=== PATIENT | male | born 1965 | race Caucasian/White ===

== ENCOUNTER 2016-06-16 13:18 | Emergency (ER) | payer MEDICAID ==
[2016-06-16] MEDS ORDERED: MORPHINE SULFATE 4 MG/ML SYRG IV ONE (13:54)
[2016-06-16] MEDS ORDERED: MORPHINE SULFATE 4 MG/ML SYRG ONE (13:54)
[2016-06-16] MEDS ORDERED: ASPIRIN 81 MG TAB.CHEW PO ONE (13:54)
[2016-06-16] MEDS ORDERED: ASPIRIN 81 MG TAB.CHEW ONE (13:54)
[2016-06-16] MEDS ORDERED: ONDANSETRON HCL/PF 2 MG/ML VIAL ONE (13:54)
[2016-06-16] MEDS ORDERED: ONDANSETRON HCL/PF 2 MG/ML VIAL IV ONE (13:54)
--- NOTE | 2016-06-16 13:54 | ERNOTE ---
Chest Pain/Cardiac HPI Date of Service: 06/16/16 Chief Complaint: Chest Pain Time Seen by Provider: 06/16/16 13:44 Source: patient Exam Limitations: no limitations Immunizations: IMMUNIZATION HX Immunizations Up to Date No History of Influenza Vaccine No Allergies/Adverse Reactions: Allergies No Known Allergies Allergy (Unverified 06/16/16 13:28) Home Medications: HOME MEDICATIONS NK [No Home Medication] 06/16/16 [Last Taken Unknown] Timing: constant Severity/Quality: severe Location: left chest Chest Pain Radiation: arms Activities at Onset: none Modifying Factors - Improves: Present: oxygen Nitro Today/Relief: 0.4 mg x 1, provided by ED Aspirin Treatment Today: 81 mg x 4, provided by ED Associated Symptoms: Present: denies symptoms, diaphoresis Prior Chest Pain/Cardiac Workup: Reports: no prior cardiac workup Review of Systems - Review of Systems Constitutional: Present: See HPI EYE: Present: no symptoms reported ENT: Present: no symptoms reported Respiratory: Present: no symptoms reported Cardiology: Present: chest pain Gastrointestinal/Abdominal: Present: no symptoms reported Genitourinary: Present: no symptoms reported Musculoskeletal: Present: no symptoms reported Skin: Present: no symptoms reported Neurological: Present: no symptoms reported Endocrine: Present: no symptoms reported Hematologic/Lymphatic: Present: no symptoms reported Psych: Present: no symptoms reported - Patient's Past Medical History Patient History - Medical: No pertinent hx Patient History - Cardiac/Respiratory: Hypertension - Social History Living Situations: home Smoking Status: Current every day smoker Alcohol Use: rarely - Immunizations Immunizations Up to Date: No History of Influenza Vaccine: No Physical Exam - Physical Exam General Appearance: Present: wd/wn, alert, moderate distress Eye Exam: Normal inspection: bilateral, PERRL: bilateral Ears, Nose, Throat: Present: normal ENT inspection, hearing grossly normal, normal pharynx Neck: Present: normal inspection, nontender Respiratory: Present: no respiratory distress, normal breath sounds, no accessory muscle use, chest nontender, lungs clear Cardiovascular/Chest: Present: no murmur, normal peripheral pulses, tachycardia Gastrointestinal/Abdominal: Present: normal bowel sounds, nontender, nondistended, soft, no organomegaly Rectal Exam: Present: deferred Back Exam: Present: normal inspection, normal range of motion Extremity Exam: Present: normal inspection, non-tender, no edema, normal range of motion Neurological Exam: Present: alert, oriented, normal mood/affect Skin Exam: Present: normal color, diaphoresis Lymphatic Exam: Present: no adenopathy ED Progress - Results and Orders Patient's Lab Results:: I have reviewed the patient's lab results. - Vital Signs Patient's Vital Signs:: I have reviewed the patient's vital signs. Vital Signs: Vital Signs 06/16/16 06/16/16 06/16/16 13:21 13:44 13:45 Temperature 36.3 C L Pulse Rate 113 H 106 H 102 H Respiratory 28 H 16 Rate Blood Pressure 185/119 158/106 O2 Sat by Pulse 90 96 Oximetry - EKG EKG: ST depression EKG read: Interp. by me - X-Ray X-Ray #1 X-Ray: chest Interpretation: Interp. by me - Progress/Reassessment Chief Complaint: Chest Pain Progress:: Improved - Transfer of Care Expected Disposition: Transfer - [place] Plan - Plan Plan: Pt to be transferred to [place] for likely PTCA Departure - Departure Clinical Impression: NSTEMI (non-ST elevated myocardial infarction) Disposition: [facility] Condition: Serious - Critical Care Total Time (mins): 45 Critical Care: Pt had a variety of interventions done in the ED, including Heparin, Nitro, IV Lopressor and Lasix.
[2016-06-16] MEDS ORDERED: NITROGLYCERIN 0.4 MG/TAB BTL SL ONE (13:55)
[2016-06-16 13:59] LABS: Hematocrit 43.3 % (42.0-52.0); Hemoglobin 15.8 gm/dL (13.5-18.0); Mean Cell Volume 91.4 fl (78-100); Mean Corpuscular Hemoglobin 33.3 pg (27-31); Mean Corpuscular Hgb Conc 36.5 g/dl (32-36); Mean Platelet Volume 9.2 fl (6.0-9.5); Neutrophil # 8.6 K/mm3 (1.3-6.0); Neutrophil % 76.1 % (42-75.0); Platelet Count 331 K/mm3 (150-450); Red Blood Count 4.74 M/mm3 (4.7-6.0); Red Cell Distribution Width 12.4 % (11.5-14.0); White Blood Count 11.3 K/mm3 (4.0-10.5)
[2016-06-16 14:07] LABS: Prothrombin Time (Patient) 10.7 Seconds (9.4-11.4)
[2016-06-16 14:10] LABS: INR 1.03 INR (0.90-1.10); Partial Thrombolplastin Time 29.5 Seconds (24-32)
[2016-06-16 14:15] LABS: Albumin * 2.9 gm/dl (3.4-5.0); Anion Gap 15.2 mmol/L (6.8-13.8); BUN/Creatinine Ratio 9.7 (9.0-21.6); Bilirubin, Total 0.5 mg/dL (0.0-1.1); Ca. Corrected For Albumin 8.8 mg/dL (8.4-10.2); Calcium * 8.2 mg/dL (7.9-10.9); Carbon Dioxide 25.5 mmol/L (24-32.6); Potassium 3.7 mmol/L (3.4-4.6); Troponin I 1.278 ng/ml (0.00-0.10)
[2016-06-16] MEDS ORDERED: HEPARIN SODIUM,PORCINE/D5W 25,000 UNITS/500 ML BAG IV PRN (14:16)
[2016-06-16] MEDS ORDERED: NITROGLYCERIN IN 5 % DEXTROSE 50 MG/250 ML INFUS..BTL IV PRN (14:16)
[2016-06-16] MEDS ORDERED: HEPARIN SODIUM,PORCINE 5,000 UNITS/ML VIAL IV ONE (14:16)
[2016-06-16] MEDS ORDERED: METOPROLOL TARTRATE 1 MG/ML AMPUL IV ONE ×2 (14:18→14:24)
[2016-06-16] MEDS ORDERED: HEPARIN SODIUM,PORCINE/D5W 25,000 UNITS/500 ML BAG IV ONE (14:25)
[2016-06-16] MEDS ORDERED: HEPARIN SODIUM,PORCINE 5,000 UNITS/ML VIAL ONE (14:25)
--- OUTSIDE RECORDS SUMMARY | 2016-06-16 14:33 | XMS REPORT | CCD ---
:1965 Author Name WILLIE GOMEZ Address [address] Unavailable [place], [place] [id number] Care Team Providers Name Role Phone MIS REECE Attending Physician Unavailable Vital Signs Unknown. Allergies Unknown. Procedures Unknown. History of Immunizations Unknown. Problems Problem Code Start Date Resolved Date Status FX METACARPAL NECK-OPEN 61348 06/24/2010 Active TOBACCO USE DISORDER [id number] 06/24/2010 Active HYPERTENSION NOS 4019 06/24/2010 Active Results Unknown. Medications Unknown. Medications Administered Unknown. Encounters Encounter Diagnosis Diagnosis Code Start Date OTHER SPECIFIED PRE OP EXAM V7283 08/05/2013 Social History Smoking Status Code Start Date End Date Current some day smoker [id number] Patient Decision Aids Unknown. Instructions You were admitted to [facility] on 08/05/2013 with a principle diagnosis of OTHER SPECIFIED PRE OP EXAM. You had the following procedures done:ELECTROCARDIOGRAMCHEST X-RAY NEC You were discharged from [facility] on 08/05/2013. Should you have any questions prior to discharge, please contact a member of your healthcare team. If you have left the hospital and have any questions, please contact your primary care physician. Chief Complaint and Reason For Visit Unknown. Function Status Unknown. Plan of Care Unknown. Referral/Transition of Care Unknown.
--- OUTSIDE RECORDS SUMMARY | 2016-06-16 14:33 | XMS REPORT | CCD ---
:1965 Author Name GERALDO SAEED Address [address] [facility] Unavailable [place], [place] [id number] Care Team Providers Name Role Phone MIS REECE Attending Physician Unavailable Vital Signs Unknown. Allergies Unknown. Procedures Unknown. History of Immunizations Unknown. Problems Problem Code Start Date Resolved Date Status FX METACARPAL NECK-OPEN 07530 06/24/2010 Active TOBACCO USE DISORDER [id number] 06/24/2010 Active HYPERTENSION NOS 4019 06/24/2010 Active Results Unknown. Medications Unknown. Medications Administered Unknown. Encounters Encounter Diagnosis Diagnosis Code Start Date OTHER SPECIFIED PRE OP EXAM V7283 08/05/2013 Social History Smoking Status Code Start Date End Date Current some day smoker [id number] Patient Decision Aids Unknown. Instructions You were admitted to [facility] on 08/05/2013 with a principle diagnosis of OTHER SPECIFIED PRE OP EXAM. You were discharged from [facility] on 08/05/2013. Should you have any questions prior to discharge, please contact a member of your healthcare team. If you have left the hospital and have any questions, please contact your primary care physician. Chief Complaint and Reason For Visit Unknown. Function Status Unknown. Plan of Care Unknown. Referral/Transition of Care Unknown.
--- OUTSIDE RECORDS SUMMARY | 2016-06-16 14:33 | XMS REPORT | Continuity of Care Document ---
:1965 Author Organization [facility] ([facility]) Address [address] [place] [address] Phone [phone] Care Team Providers Name Role Phone Provider, No-Primary Care Primary Care Provider Unavailable Source Comments This disclosure is being made pursuant to the Care Everywhere program, applicable federal and state laws, and may not contain all informaitonavailable regarding this patient.[facility] ([facility]) Active Allergies and Adverse Reactions Not on File Current Medications Not on file Active Problems Not on file Social History Tobacco Use Types Packs/Day Years Used Date Never Assessed Plan of Care Health Maintenance Due Date Last Done Comments HCV Screening 1965 Hepatitis B Vaccine (1 of 3 - Primary Series) 1965 Tdap Vaccine 1974 Lipid Disorder Screening 1981 MMR Vaccine 1981 Td Vaccine 1981 Colonoscopy 03/26/2013 Prostate Cancer Screening 2013 Influenza Vaccine: Seasonal (#1) 11/20/2015 Results from Last 3 Months Not on file
--- OUTSIDE RECORDS SUMMARY | 2016-06-16 14:33 | XMS REPORT | CCD ---
:1965 Author Name WILLIE GOMEZ Address [address] [facility] Unavailable [place], [place] [phone] Care Team Providers Name Role Phone ANDREA RODRIGUEZ Attending Physician Unavailable Vital Signs Unknown. Allergies Unknown. Procedures Unknown. History of Immunizations Unknown. Problems Problem Code Start Date Resolved Date Status FX METACARPAL NECK-OPEN 76217 06/24/2010 Active TOBACCO USE DISORDER [id number] 06/24/2010 Active HYPERTENSION NOS 4019 06/24/2010 Active Results CBC Test Name Code Test Result Test Units Test Date/Time WBC 6690-2 6.6000 K/uL 06/24/2013 08:44 RBC 789-8 5.2300 M/uL 06/24/2013 08:44 HEMOGLOBIN 718-7 18.0000 g/dL 06/24/2013 08:44 HEMATOCRIT 49.9000 % 06/24/2013 08:44 MCV 95.4000 fL 06/24/2013 08:44 MCH 34.4000 PG 06/24/2013 08:44 MCHC 36.1000 G/DL 06/24/2013 08:44 RDW-SD 44.5000 FL 06/24/2013 08:44 RDW-CV 12.7000 % 06/24/2013 08:44 PLATELETS 421.0000 K/UL 06/24/2013 08:44 MPV 8.8000 FL 06/24/2013 08:44 %GRAN 35.5000 % 06/24/2013 08:44 %LYMPH 45.2000 % 06/24/2013 08:44 %MONO 15.3000 % 06/24/2013 08:44 %EOS 3.2000 % 06/24/2013 08:44 %BASO 0.8000 % 06/24/2013 08:44 #GRAN 2.3500 K/UL 06/24/2013 08:44 #LYMPH 2.9800 K/UL 06/24/2013 08:44 #MONO 1.0100 K/UL 06/24/2013 08:44 #EOS 0.2100 K/UL 06/24/2013 08:44 #BASO 0.0500 K/UL 06/24/2013 08:44 SLIDE REVIEWED? NOT INDICATED N/A 06/24/2013 08:44 MANUAL DIFF NOT INDICATED N/A 06/24/2013 08:44 Medications Unknown. Medications Administered Unknown. Encounters Encounter Diagnosis Diagnosis Code Start Date ACUTE BRONCHITIS 4660 06/24/2013 Social History Smoking Status Code Start Date End Date Current some day smoker [id number] Patient Decision Aids Unknown. Instructions You were admitted to [facility] on 06/24/2013 with a principle diagnosis of ACUTE BRONCHITIS. You were discharged from [facility] on 06/24/2013. Should you have any questions prior to discharge, please contact a member of your healthcare team. If you have left the hospital and have any questions, please contact your primary care physician. Chief Complaint and Reason For Visit Unknown. Function Status Unknown. Plan of Care Diagnostic Test Pending Plan of Care Pending Diagnostic Test RICHARDSON, [LOINC: 1992-7], 06/24/2013 Referral/Transition of Care Unknown.
[2016-06-16] MEDS ORDERED: FUROSEMIDE 10 MG/ML VIAL IV ONE (14:37)
[2016-06-16] MEDS ORDERED: FUROSEMIDE 10 MG/ML VIAL ONE (14:47)
[2016-06-16 14:53] VITALS: BP 117/96
== END 2016-06-16 14:45 | disposition short-term general hospital (02) ==
LOC: ER 13:18
DX: I21.4 Non-ST elevation (NSTEMI) myocardial infarction (principal); F17.210 Nicotine dependence, cigarettes, uncomplicated